=== PATIENT | male | born 1965 | race African-American/Black ===

== ENCOUNTER 2017-05-27 06:58 | Emergency (ER) | payer OTHER ==
[~2017-05-27] VITALS: Ht 175.3 cm; Wt 75.6 kg
[~2017-05-27 06:58] MED LIST: LEVAQUIN500 MG PO; MEDROL DOSEPAK4 MG PO; MIRALAX17 GM PO; MOTRIN600 MG PO; NAPROSYN500 MG PO; PERCOCET 5/31 TABLET PO; PROAIR RESPICL90 MCG IH; ROBITUSSIN COU118 M6 PO; SKELAXIN800 MG PO; VALIUM2 MG PO
[2017-05-27] MEDS ORDERED: ULTRAM50 MG PO (09:29)
[2017-05-27 09:42] VITALS: BP 119/81
== END 2017-05-27 09:41 | disposition home or self-care (01) ==
LOC: EME 06:58
DX: S22.42XA Multiple fractures of ribs, left side, initial encounter for closed fracture (principal); W10.9XXA Fall (on) (from) unspecified stairs and steps, initial encounter; Y93.01 Activity, walking, marching and hiking; D86.9 Sarcoidosis, unspecified; F17.200 Nicotine dependence, unspecified, uncomplicated
CPT/HCPCS: 71100; 99281; 99284; J1885